=== PATIENT | male | born 1970 | race Caucasian/White ===

== ENCOUNTER → 2021-02-01 | Outpatient (CLI) | payer OTHER ==
[2015-01-04 21:40] VITALS: BP 117/74
[~2021-02-01] MED LIST: CARV12.5 PO; MULT-445 PO; OMEG500C3 PO
--- NOTE | 2021-02-01 11:04 | RAD ---
AP and Lateral Views of the Chest 02/01/2021 10:17 AM Indication: Reason: COUGH WITH SHORTNESS OF BREATH FOR A FEW DAYS / Spl. Instructions: / History: Comparison: Chest radiograph June 20, 2012 Findings: Calcified granuloma noted in the right upper lobe. There is no focal consolidation or infil trate identified. Heart size is normal. There is no evidence of pneumothorax or pleural effusion. No acute osseous abnormalities are identified. Impression: No evidence of acute cardiopulmonary process. Electronically signed by: Kofi Cervantes MD (02/01/2021 11:01 AM) [id number]
== END ==
LOC: RAD 10:12
PROVIDERS: ATTEND Physician Assistant
DX: J84.10 Pulmonary fibrosis, unspecified (principal)
CPT/HCPCS: 71046

== ENCOUNTER → 2021-10-16 | Outpatient (CLI) | payer OTHER ==
[2015-01-04 21:40] VITALS: BP 117/74
--- NOTE | 2021-10-17 10:03 | RAD ---
XR NECK SOFT TISSUE History: Reason: rt side SWELLING, PAIN / Spl. Instructions: / History: Technique: 2 views neck soft tissues. Comparison: None. Findings: Moderate cervical spondylosis most prominent C4-C5 and C5-C6. No acute fracture. Prevertebral soft ti ssues are unremarkable. Normal appearance of the epiglottis. No radiopaque foreign body. Impression: 1. No radiographic evidence of acute pathology within the neck soft tissues. 2. Moderate cervical spondylosis. Electronically signed by: Miguel Contreras DO (10/17/2021 10:00 AM) [id number]
== END ==
LOC: PMG 15:41
PROVIDERS: ATTEND Nurse Practitioner Family
DX: M47.812 Spondylosis without myelopathy or radiculopathy, cervical region (principal)
CPT/HCPCS: 70360